=== PATIENT | male | born 1985 | race African-American/Black ===

== ENCOUNTER 2018-03-11 17:11 | Emergency (ER) | payer MEDICAID ==
[~2018-03-11] VITALS: Ht 188 cm; Wt 102.1 kg
[2018-03-11 17:20] VITALS: BP_SYST 146
--- NOTE | 2018-03-11 17:25 | NUR ---
Patient triaged and placed in waiting room. VSS and patient appears in no acute distress at this time. Accompanied by friend, awaiting available bed, and MD notified of need for MSE.
--- NOTE | 2018-03-11 17:35 | NUR ---
Note don in EDM - 03/11/18 at 1738 by PARKER Patient to ER bed 8 for evaluation. Side rails up. Report given to Lenard.
--- NOTE | 2018-03-11 17:35 | NUR ---
Patient to ER bed 3 for evaluation.
--- NOTE | 2018-03-11 17:50 | NUR ---
Phuong [employer]ER[employer]IST at bedside.
[2018-03-11] MEDS ORDERED: DEXAMETHASONE SOD PHOSPHATE 10 MG/ML VIAL IM ONE (18:00)
[2018-03-11] MEDS ORDERED: KETOROLAC TROMETHAMINE 60 MG/2 ML VIAL IM ONE (18:00)
--- NOTE | 2018-03-11 18:52 | NUR ---
C/O right lower back pain with radiation to right buttock and leg. States this has been getting progressively worse over 3 months. S/C bump on scalp.
--- NOTE | 2018-03-11 19:01 | NUR ---
Phuong MCKEON at bedside for revaluation.
[2018-03-11 19:22] VITALS: BP_SYST 128
--- NOTE | 2018-03-11 19:22 | NUR ---
Patient given written and verbal discharge instructions and verbalizes understanding. ER MD discussed with patient the results and treatment provided. Patient in stable condition. ID arm band removed. Rx of Doxycycline, Hibiclens, Soma, Motrin, Prednisone given. Patient educated on pain management and to follow up with PMD. Pain Scale 0/10. Opportunity for questions provided and answered. Medication side effect fact sheet provided.
== END 2018-03-11 19:22 | disposition home or self-care (01) ==
LOC: SED 17:11
DX: M54.31 Sciatica, right side (principal); L73.8 Other specified follicular disorders; R03.0 Elevated blood-pressure reading, without diagnosis of hypertension
CPT/HCPCS: 96372; 99284; J1100; J1885

== ENCOUNTER 2018-03-17 10:57 | Emergency (ER) | payer MEDICAID ==
[~2018-03-17] VITALS: Ht 188 cm; Wt 99.8 kg
[2018-03-17 11:11] VITALS: BP_SYST 134
[2018-03-17 12:07] VITALS: BP_SYST 134
== END 2018-03-17 12:07 | disposition home or self-care (01) ==
LOC: SED 10:57
DX: B35.6 Tinea cruris (principal); R03.0 Elevated blood-pressure reading, without diagnosis of hypertension
CPT/HCPCS: 99282